=== PATIENT | female | born 1995 | race Caucasian/White ===

== ENCOUNTER 2023-10-20 16:10 | Outpatient (CLI) | payer BC, SELFPAY ==
[2023-10-20 18:54] LABS: Chlamydia DNA Amplified* NOT DETECTED (No Detected); GC DNA Amplified* NOT DETECTED (No Detected)
== END 2023-10-20 16:11 | disposition home or self-care (01) ==
LOC: NFLDREF 16:11
PROVIDERS: Visit Provider Obstetrics & Gynecology
DX: N93.9 Abnormal uterine and vaginal bleeding, unspecified (principal)
CPT/HCPCS: 87491; 87591

== ENCOUNTER 2023-10-25 15:53 | Outpatient (CLI) | payer BC, SELFPAY ==
--- NOTE | 2023-10-25 16:00 | US_ITS ---
Patient: RODOLFO MOORE Facility:?[facility] Patient ID:?[id number] Site Patient ID:?[id number]. Site :?[id number] Study:?US-Pelvis TRANSABDOMINAL AND TRANSVAGINAL-10/25/2023 4:25:18 PM Ordering Physician:LEVAR ROSALES Final Report: INDICATION: Abnormal uterine and vaginal bleeding. COMPARISON: None. TECHNIQUE: 2D rapp scale and color Doppler images were acquired of the pelvis using a transabdominal and transvaginal approach. FINDINGS: Sonographic images demonstrate a normal size and smooth outer contour of the uterus. The uterus is anteverted in position. The uterus measures 8.1 cm in length by 2.9 cm in AP diameter by 3.9 cm in transverse dimension. The myometrium has uniform echotexture. The endometrial lining measures 3 mm in composite thickness. IUD appears appropriately positioned. The right ovary measures 3.8 x 1.4 x 2.5 cm and the left ovary measures 5.0 x 2.8 x 3.2 cm. Blood flow is present within both ovaries. There is a 2.4 cm dominant follicle in the left ovary. No free fluid in the pelvic cul-de-sac. IMPRESSION: 1. IUD appears appropriately positioned with thin endometrial stripe. 2. Dominant follicle in the left ovary. 3. Exam otherwise unremarkable. Dictated by Kayy Roe MD @ 10/26/2023 3:27:55 AM Signed by:?Kayy Roe MD @10/26/2023 3:27:55 AM (Electronic Signature)
== END 2023-10-25 15:54 | disposition home or self-care (01) ==
LOC: US 15:53
PROVIDERS: Visit Provider Obstetrics & Gynecology
DX: N93.9 Abnormal uterine and vaginal bleeding, unspecified (principal); N83.02 Follicular cyst of left ovary
CPT/HCPCS: 76830; 76856